=== PATIENT | female | born 1985 | race Caucasian/White ===

== ENCOUNTER 2018-11-12 12:59 | Emergency (ER) | payer OTHER ==
[~2018-11-12] VITALS: Ht 167.6 cm; Wt 97.5 kg
[2018-11-12 13:00] VITALS: BP 140/87
--- NOTE | 2018-11-12 13:46 | PHYS DOC ---
Past History Past Medical History: Other Past Surgical History: No Surgical History Alcohol Use: Rarely Drug Use: None Adult General Chief Complaint Chief Complaint: LOWER EXT PAIN HPI HPI 33-year-old female presents with right ankle pain. She was working yesterday when she stepped on an object and rolled her foot medially. She had right lateral ankle pain. She was able to keep working, but it was painful. The patient thought it would get better overnight. Today, she feels like the pain is equally severe with walking and turning. She is a bit nervous that it could be week and give out. She doesn't want to have a more significant injury. She is able to walk. He denies numbness or tingling. She denies any other injuries or complaints. Review of Systems Review of Systems Constitutional: Denies fever or chills [] Eyes: Denies change in visual acuity, redness, or eye pain [] HENT: Denies nasal congestion or sore throat [] Respiratory: Denies cough or shortness of breath [] Cardiovascular: No additional information not addressed in HPI [] GI: Denies abdominal pain, nausea, vomiting, bloody stools or diarrhea [] : Denies dysuria or hematuria [] Musculoskeletal: Right lateral ankle pain[] Integument: Denies rash or skin lesions [] Neurologic: Denies headache, focal weakness or sensory changes [] Endocrine: Denies polyuria or polydipsia [] All other systems were reviewed and found to be within normal limits, except as documented in this note. Physical Exam Physical Exam Constitutional: Well developed, well nourished, no acute distress, non-toxic appearance. [] HENT: Normocephalic, atraumatic, bilateral external ears normal, oropharynx moist, no oral exudates, nose normal. [] Eyes: PERRLA, EOMI, conjunctiva normal, no discharge. [] Neck: Normal range of motion, no tenderness, supple, no stridor. [] Cardiovascular:Heart rate regular rhythm, no murmur [] Lungs & Thorax: Bilateral breath sounds clear to auscultation [] Abdomen: Bowel sounds normal, soft, no tenderness, no masses, no pulsatile masses. [] Skin: Warm, dry, no erythema, no rash. [] Back: No tenderness, no CVA tenderness. [] Extremities: No tenderness, no cyanosis, no clubbing, ROM intact, no edema. [] Neurologic: Alert and oriented X 3, normal motor function, normal sensory function, no focal deficits noted. [] Psychologic: Affect normal, judgement normal, mood normal. [] Current Patient Data Vital Signs Vital Signs Date Time Temp Pulse Resp B/P (MAP) Pulse Ox O2 Delivery O2 Flow Rate FiO2 11/12/18 13:00 98.5 77 22 99 Room Air EKG EKG [] Radiology/Procedures Radiology/Procedures [] Course & Med Decision Making Course & Med Decision Making Pertinent Labs and Imaging studies reviewed. (See chart for details) The patient has a mild right ankle sprain. I will treat her with an air splint. She will return to modified duty work tomorrow for one week. [] Dragon Disclaimer Dragon Disclaimer This electronic medical record was generated, in whole or in part, using a voice recognition dictation system. Departure Departure: Impression: Primary Impression: Right ankle sprain Disposition: HOME, SELF-CARE Condition: STABLE Referrals: ADALGISA CHATTERJEE MD (PCP) Patient Instructions: Ankle Sprain, Acute, with Phase I Rehab-SportsMed Problem Qualifiers Primary Impression: Right ankle sprain Encounter type: initial encounter Involved ligament of ankle: anterior talofibular ligament Qualified Codes: S93.491A - Sprain of other ligament of right ankle, initial encounter DALLIN EMERY DO November 12, 2018 13:46
--- NOTE | 2018-11-12 13:56 | RAD ---
Examination: 3 views of the right ankle HISTORY: History of ankle pain, tripped over pallet yesterday COMPARISON: None available FINDINGS: The alignment of the ankle mortise grossly appears unremarkable. There is no acute fracture or dislocation. IMPRESSION: No acute osseous findings. Electronically signed by: Braden Jiménez MD (11/12/2018 1:53 PM) [facility]
== END 2018-11-12 14:07 | disposition home or self-care (01) ==
LOC: ER 12:59
DX: S93.401A Sprain of unspecified ligament of right ankle, initial encounter (principal); X50.9XXA Other and unspecified overexertion or strenuous movements or postures, initial encounter; Y93.89 Activity, other specified; Y92.89 Other specified places as the place of occurrence of the external cause; Y99.8 Other external cause status
CPT/HCPCS: 29515; 73610; 99284